=== PATIENT | male | born 1965 | race Two or more races ===

== ENCOUNTER 2022-03-05 19:47 | Emergency (ER) | payer OTHER ==
[~2022-03-05] VITALS: Ht 177.8 cm; Wt 72.6 kg
[2022-03-05] MEDS ORDERED: HYDROcodone-ACET 5/325MG TAB PO ONE (20:45)
[2022-03-05 22:25] VITALS: BP 127/74
[2022-03-05] MEDS ORDERED: CEPH-510 PO (23:42)
[2022-03-05] MEDS ORDERED: ONDA-144 PO (23:42)
[2022-03-05] MEDS ORDERED: HYDR-4902 PO (23:42)
== END 2022-03-05 23:49 | disposition home or self-care (01) ==
LOC: ER 19:47
DX: S62.324A Displaced fracture of shaft of fourth metacarpal bone, right hand, initial encounter for closed fracture (principal); S61.411A Laceration without foreign body of right hand, initial encounter; W26.8XXA Contact with other sharp object(s), not elsewhere classified, initial encounter; Y93.89 Activity, other specified; Y92.89 Other specified places as the place of occurrence of the external cause; Y99.8 Other external cause status
CPT/HCPCS: 12004; 29125; 73090; 73130